=== PATIENT | female | born 1975 | race Two or more races ===

== ENCOUNTER 2020-05-12 05:15 | Day surgery (SDC) | payer OTHER ==
[2020-05-12] MEDS ORDERED: TAMS0.4C PO (09:08)
[2020-05-12] MEDS ORDERED: KETO10TA2 PO (09:09)
[2020-05-12] MEDS ORDERED: IOVERSOL IV (09:10)
[2020-05-12] MEDS ORDERED: ULTRAM50 MG PO (11:20)
== END 2020-05-12 13:45 | disposition home or self-care (01) ==
LOC: CIR.AMB 05:15
PROVIDERS: ATTEND Surgery
DX: N20.0 Calculus of kidney (principal); Z20.828 Contact with and (suspected) exposure to other viral communicable diseases

== ENCOUNTER 2021-05-13 09:00 | Inpatient (IN) | payer OTHER ==
[~2021-05-13] VITALS: Ht 154.9 cm; Wt 58.1 kg
[~2021-05-13 09:00] MED LIST: IOVERSOL IV; KETO10TA2 PO; TAMS0.4C PO; ULTRAM50 MG PO
[2021-05-17] MEDS ORDERED: DULERA 200 MCG/13 GM (15:48)
[2021-05-17] MEDS ORDERED: FAMOTIDINE20 MG (15:48)
[2021-05-17] MEDS ORDERED: BUTALB-ACETAMI1 EACH (15:48)
== END 2021-05-18 16:23 | disposition home or self-care (01) | DRG 743 ==
LOC: SURH 05-17 09:00 → O/R 05-17 10:18 → SURH 05-17 10:45 → OB/GYN 05-17 19:27
PROVIDERS: ADMIT Obstetrics & Gynecology; ATTEND Obstetrics & Gynecology
PROC: 0UB74ZZ Excision of Bilateral Fallopian Tubes, Percutaneous Endoscopic Approach (ICD-10-PCS; 2021-05-17)
PROC: 0TJB8ZZ Inspection of Bladder, Via Natural or Artificial Opening Endoscopic (ICD-10-PCS; 2021-05-17)
PROC: 0UT94ZZ Resection of Uterus, Percutaneous Endoscopic Approach (ICD-10-PCS; principal; 2021-05-17 10:45)
DX: N84.0 Polyp of corpus uteri (principal); N80.0 Endometriosis of uterus; D25.1 Intramural leiomyoma of uterus; D25.2 Subserosal leiomyoma of uterus; R10.2 Pelvic and perineal pain; N93.9 Abnormal uterine and vaginal bleeding, unspecified